=== PATIENT | male | born 1955 | race Caucasian/White ===

== ENCOUNTER 2017-05-27 17:38 | Emergency (ER) | payer OTHER ==
[2017-05-27 17:57] VITALS: BP 142/81; PULSE 88; TEMP 100.4; BMI 23.3
--- NOTE | 2017-05-27 18:33 | PDOC ---
History of Present Illness - General Chief Complaint: Respiratory Stated Complaint: CONGESTION Time Seen by Provider: 05/27/17 18:15 History Source: Patient Exam Limitations: No Limitations - History of Present Illness Initial Comments: 05/27/17 18:33 Here with with complaints of cough, fevers Tmax 101 today, white phlegm production and shortness of breath. Is a smoker, and feels is progressively worsening. Has had a chronic cough for the past 2 years however he became ill with chills and fevers yesterday. is ill with same but not as severe. Timing/Duration: reports: changing over time, getting worse Severity: reports: mild, moderate Associated Symptoms: reports: chest pain/soreness, cough, dizziness, fever/ chills, nasal congestion, nasal drainage, shortness of breath Past History - Travel Traveled outside of the country in the last 30 days: No Close contact w/someone who was outside of country & ill: No - Past Medical History Allergies/Adverse Reactions: Allergies Allergy/AdvReac Type Severity Reaction Status Date / Time No Known Allergies Allergy Verified 05/27/17 17:58 Home Medications: Ambulatory Orders Albuterol Sulfate [Proventil HFA Inhaler -] 1 - 2 inh PO QID #1 inhaler Levofloxacin [Levaquin -] 500 mg PO DAILY #10 tablet 05/27/17 GI Disorders: Yes (ULCER) Hypercholesterolemia: Yes - Surgical History GI Surgery: Yes (ULCERS) - Psycho/Social/Smoking Cessation Hx Anxiety: No Suicidal Ideation: No Smoking History: Current every day smoker Number of Cigarettes Smoked Daily: 20 Information on smoking cessation initiated: No Hx Alcohol Use: Yes (SOCIAL) Drug/Substance Use Hx: No Substance Use Type: None Respiratory Specific PMHX - Complaint Specific PMHX Bronchitis: No Pneumonia: No Review of Systems - Review of Systems Able to Perform ROS?: Yes Is the patient limited [place] Citizen proficient: Yes Constitutional: Yes: Symptoms Reported, See HPI, Chills, Fever, Malaise, Weakness HEENTM: Yes: Symptoms Reported, See HPI, Nose Congestion, Throat Swelling Respiratory: Yes: Symptoms reported, See HPI, Cough, Shortness of Breath. No: Wheezing Cardiac (ROS): No: Symptoms Reported ABD/GI: No: Symptoms Reported : No: Symptoms Reported Musculoskeletal: Yes: Symptoms Reported, Muscle Weakness Integumentary: Yes: See HPI. No: Symptoms Reported All Other Systems: Reviewed and Negative *Physical Exam - Vital Signs Last Vital Signs Temp Pulse Resp BP Pulse Ox 100.4 F H 88 20 142/81 96 05/27/17 17:55 05/27/17 17:55 05/27/17 17:55 05/27/17 17:55 05/27/17 17:55 - Physical Exam General Appearance: Yes: Nourished, Appropriately Dressed, Apparent Distress, Mild Distress HEENT: positive: NANDO, TMs Normal, Nasal Congestion, Rhinorrhea, Sinus Tenderness. negative: Normal ENT Inspection, Pharynx Normal (I'll do erythema noted with copious amount of posterior sinus drainage posterior pharynx) Neck: positive: Supple. negative: Lymphadenopathy (R), Lymphadenopathy (L) Respiratory/Chest: positive: Rhonchi, Wheezing (tight inspiratory breath sounds with provoked cough on deep inspiration. Right side more coarse breath sounds than left). negative: Chest Tender, Lungs Clear, Normal Breath Sounds, Respiratory Distress Cardiovascular: positive: Regular Rate Gastrointestinal/Abdominal: positive: Normal Bowel Sounds, Soft. negative: Tender Musculoskeletal: positive: Normal Inspection Extremity: positive: Normal Capillary Refill, Normal Inspection, Tender Integumentary: positive: Normal Color, Dry, Warm, Pale Neurologic: positive: dock grader II-XII NML intact, Fully Oriented, Alert, Normal Mood/ Affect, Normal Response, Motor Strength 5/5 Progress Note - Progress Note Progress Note: Acute bronchitis, x-ray negative for pneumonia. We will start Levaquin as patient is [id number] history smoker with fevers to cover, provided albuterol inhaler and will see Dr Real for followup in 2 days. *DC/Admit/Observation/Transfer Diagnosis at time of Disposition: Bronchitis - Discharge Dispostion Disposition: HOME Condition at time of disposition: Stable Admit: No - Patient Instructions Printed Discharge Instructions: DI for Acute Bronchitis Additional Instructions: Rest, drink lots of fluids: Teas, water, soups, Pedialyte Saltwater gargles Steamy showers/seem to face break up mucus Avoid contact with others until fevers and cough resolved Lots of handwashing and good hygiene Continue [id number] medications for symptomatic relief Tylenol or Motrin for fever and pain Levaquin 1 tab daily as directed until completed Proventil inhaler 2 puffs 4 times a day for the next 2 days then as needed Followup with private physician in one to 2 days Return to emergency department for worsened symptoms, fevers, dehydration - Post Discharge Activity Work/School Note: Back to Work
[2017-05-27] MEDS ORDERED: ALBUTEROL SO4 2.5/IPRATROPIUM 0.5 INH SOL 3 ML VIAL.NEB. NEB ONE ×2 (18:34→18:37)
[2017-05-27] MEDS ORDERED: IBUPROFEN 600 MG TABLET (FP) PO ONE (18:58)
[2017-05-27] MEDS ORDERED: LEVOFLOXACIN 500 MG TABLET (FP) PO ONE (18:59)
[2017-05-27] MEDS ORDERED: LEVOFLOXACIN 500 MG TABLET (FP) ONE (18:59)
== END 2017-05-27 19:07 | disposition home or self-care (01) ==
LOC: JERFT 17:38
PROC: 3E0F7GC Introduction of Other Therapeutic Substance into Respiratory Tract, Via Natural or Artificial Opening (ICD-10-PCS; principal; 2017-05-27)
DX: J40 Bronchitis, not specified as acute or chronic (principal); F17.210 Nicotine dependence, cigarettes, uncomplicated; E78.00 Pure hypercholesterolemia, unspecified
CPT/HCPCS: 71020-TC; 99281-25

== ENCOUNTER 2020-09-13 09:50 | Emergency (ER) | payer OTHER ==
[2020-09-13 10:19] VITALS: BMI 24.0
[2020-09-13] MEDS ORDERED: SODIUM CHLORIDE 0.9% 500 ML INFUS.BAG IV ONE (10:56)
[2020-09-13] MEDS ORDERED: ONDANSETRON 4 MG/2 ML VIAL IVPUSH ONE (10:56)
[2020-09-13] MEDS ORDERED: FAMOTIDINE 20 MG/50 ML IVPB 20 MG/50 ML MG IVPB ONE ×2 (10:56→11:12)
[2020-09-13] MEDS ORDERED: ASPIRIN 81 MG CHEWABLE TABLETS PO ONE (10:58)
[2020-09-13] MEDS ORDERED: HEPARIN NA (PORCINE) 5,000 UNITS/ML 1ML VIAL IVPUSH ONE (10:58)
[2020-09-13] MEDS ORDERED: ONDANSETRON 4 MG/2 ML VIAL ONE (11:03)
[2020-09-13] MEDS ORDERED: HEPARIN NA (PORCINE) 5,000 UNITS/ML 1ML VIAL ONE (11:03)
[2020-09-13] MEDS ORDERED: ASPIRIN 81 MG CHEWABLE TABLETS ONE (11:03)
[2020-09-13 11:11] LABS: BASO % 0.7 % (0-2.0); EOS % 0.1 % (0-4.5); HEMATOCRIT 42.5 % (35.4-49); HEMOGLOBIN 13.8 GM/dL (11.7-16.9); LYMPH % 12.6 % (8-40); MCH 25.6 pg (25.7-33.7); MCHC 32.5 g/dl (32.0-35.9); MEAN CELL VOLUME 78.9 fl (80-96); MEAN PLT VOLUME 9.9 fl (7.5-11.1); MONO % 5.9 % (3.8-10.2); NEUT % 80.7 % (42.8-82.8); PLATELET COUNT 254 K/MM3 (134-434); WHITE BLOOD COUNT 12.3 K/mm3 (4.0-10.0)
[2020-09-13] MEDS ORDERED: TICAGRELOR 90 MG TABLET PO ONE (11:12)
[2020-09-13 11:26] LABS: POTASSIUM 4.5 mmol/L (3.5-5.1)
[2020-09-13 11:29] LABS: BLOOD UREA NITROGEN 18.7 mg/dL (7-18); CALCIUM 9.8 mg/dL (8.5-10.1)
[2020-09-13 11:32] VITALS: BP 106/72; PULSE 74; TEMP 98.6
[2020-09-13 11:34] LABS: TOT PROT 8.2 g/dl (6.4-8.2)
[2020-09-14] MEDS ORDERED: TICAGRELOR 90 MG TABLET PO ONE (11:09)
== END 2020-09-13 11:40 | disposition short-term general hospital (02) ==
LOC: JER 09:50
DX: I21.3 ST elevation (STEMI) myocardial infarction of unspecified site (principal)
CPT/HCPCS: 36415; 71045-TC-FY; 80053; 83690; 84484; 85025; 85730; 93005; 93010; 99291; J1644

== ENCOUNTER 2021-04-28 20:57 | Emergency (ER) | payer OTHER ==
[2021-04-28 21:09] VITALS: TEMP 98.1; BMI 24.0
[2021-04-28] MEDS ORDERED: SODIUM CHLORIDE 0.9% 500 ML INFUS.BAG IV ONE (21:17)
[2021-04-28 21:59] LABS: BASO % 0.4 % (0-2.0); EOS % 0.1 % (0-4.5); HEMATOCRIT 29.5 % (35.4-49); HEMOGLOBIN 9.4 GM/dL (11.7-16.9); LYMPH % 7.1 % (8-40); MCHC 31.9 g/dl (32.0-35.9); MEAN PLT VOLUME 9.3 fl (7.5-11.1); MONO % 3.1 % (3.8-10.2); NEUT % 89.3 % (42.8-82.8); PLATELET COUNT 294 10^3/uL (134-434); RBC 4.27 M/mm3 (4.00-5.60); RDW 17.3 % (11.9-15.9); WHITE BLOOD COUNT 14.2 K/mm3 (4.0-10.0)
[2021-04-28 22:07] LABS: INR 1.05 (0.83-1.09); PROTHROMBIN TIME (PATIENT) 12.9 SEC (9.7-13.0)
[2021-04-28 22:18] LABS: CHLORIDE 112 mmol/L (98-107); SODIUM 143 mmol/L (136-145)
[2021-04-28 22:20] LABS: ALBUMIN 3.4 g/dl (3.4-5.0); ANION GAP 6 MMOL/L (8-16); BLOOD UREA NITROGEN 21.9 mg/dL (7-18); CALCIUM 8.3 mg/dL (8.5-10.1); CO2 24 mmol/L (21-32); GLUCOSE,RANDOM 95 mg/dL (74-106)
[2021-04-28 22:23] LABS: CREATININE 1.1 mg/dL (0.55-1.3); SGOT/AST 19 U/L (15-37); SGPT/ALT 30 U/L (13-61)
[2021-04-28 22:25] LABS: BILIRUBIN,TOTAL 0.4 mg/dL (0.2-1); TOT PROT 6.7 g/dl (6.4-8.2)
[2021-04-28 22:26] LABS: ALK PHOS 76 U/L (45-117)
[2021-04-28 22:59] LABS: ANISOCYTOSIS 2+; MACROCYTOSIS 0; OVALOCYTE 1+; PLATELET ESTIMATE NORMAL; TARGET CELLS 1+
[2021-04-28 23:43] LABS: URINE APPEARANCE CLEAR; URINE BILIRUBIN NEGATIVE (NEGATIVE); URINE COLOR YELLOW; URINE GLUCOSE (UA) NEGATIVE (NEGATIVE); URINE KETONE TRACE (NEGATIVE); URINE LEUK ESTERASE NEGATIVE (NEGATIVE); URINE NITRITE NEGATIVE (NEGATIVE); URINE PROTEIN NEGATIVE (NEGATIVE)
[2021-04-29 00:53] VITALS: BP 103/63; PULSE 74
== END 2021-04-29 00:54 | disposition home or self-care (01) ==
LOC: JER 20:57
DX: R42 Dizziness and giddiness (principal); R06.02 Shortness of breath; I95.9 Hypotension, unspecified
CPT/HCPCS: 36415; 71045-TC-FY; 80053; 81003; 82550; 84484; 85025; 85610; 87086; 93005; 93010; 99284-25; C9803; U0003; U0005

== ENCOUNTER 2024-12-31 14:50 | Observation (INO) | payer OTHER ==
[2024-12-31 16:21] LABS: ABSOLUTE IMMATURE GRANULOCYTES 0.02 x10^3/uL (0.0-0.031); BASOPHILS # 0.11 x10^3/uL (0.01-0.08); EOSINOPHILS # 0.22 x10^3/uL (0.04-0.54); HEMATOCRIT 26.5 % (40.1-51.0); HEMOGLOBIN 7.5 g/dL (13.7-17.5); MCHC 28.3 g/dl (32.3-36.5); MEAN CELL VOLUME 60.6 fl (79.0-92.2); MEAN PLT VOLUME 10.1 fl (9.4-12.4); MONOCYTE # 0.61 x10^3/uL (0.30-0.82); MONOCYTE % 8.4 % (5.3-12.2); PLATELET COUNT 496 x10^3/uL (163-337); RDW 22.7 % (12.2-16.4)
[2024-12-31 16:29] LABS: INR 1.15 (0.83-1.09); PROTHROMBIN TIME (PATIENT) 12.6 SEC (9.7-13.0)
[2024-12-31 16:32] LABS: ACTIVATED PTT 28.5 SECONDS (25.2-36.5)
[2024-12-31 16:45] LABS: ALBUMIN 3.2 g/dl (3.4-5.0); CALCIUM 8.6 mg/dL (8.5-10.1)
[2024-12-31 16:46] LABS: BLOOD UREA NITROGEN 18.9 mg/dL (7-18); MAGNESIUM 2.1 mg/dL (1.8-2.4)
[2024-12-31 16:49] LABS: CREATININE 1.1 mg/dL (0.55-1.3)
[2024-12-31 16:50] LABS: BILIRUBIN,TOTAL 0.9 mg/dL (0.2-1); TOT PROT 6.6 g/dl (6.4-8.2)
[2024-12-31 16:54] LABS: N-TERMINAL BNP 855.2 pg/ml (5-125)
[2024-12-31 17:13] LABS: LACTIC ACID 2.6 mmol/L (0.4-2.0)
[2024-12-31] MEDS: LACTATED RINGERS SOLUTION 1000 ML INFUS.BAG IV ONE (17:32)
[2024-12-31 17:37] LABS: HCV DIAGNOSTIC IN-HOUSE W/RFLX NON-REACTIVE (NONREACTIVE); HIV INTERPRETATION NEGATIVE (NEGATIVE)
[2024-12-31 18:35] LABS: PH,URINE 5.5 (5.0-8.0); URINE APPEARANCE CLEAR; URINE BILIRUBIN NEGATIVE (NEGATIVE); URINE COLOR YELLOW; URINE GLUCOSE (UA) 3+ (NEGATIVE); URINE KETONE NEGATIVE (NEGATIVE); URINE LEUK ESTERASE NEGATIVE (NEGATIVE); URINE NITRITE NEGATIVE (NEGATIVE); URINE PROTEIN NEGATIVE (NEGATIVE)
[2024-12-31 23:16] VITALS: BMI 21.9
[2025-01-01 01:44] LABS: ABSOLUTE IMMATURE GRANULOCYTES 0.02 x10^3/uL (0.0-0.031); BASOPHILS # 0.12 x10^3/uL (0.01-0.08); EOSINOPHIL % 2.7 % (0.8-7.0); EOSINOPHILS # 0.24 x10^3/uL (0.04-0.54); HEMATOCRIT 29.2 % (40.1-51.0); HEMOGLOBIN 8.4 g/dL (13.7-17.5); MCHC 28.8 g/dl (32.3-36.5); MEAN CELL VOLUME 63.3 fl (79.0-92.2); MEAN PLT VOLUME 10.4 fl (9.4-12.4); MONOCYTE # 0.61 x10^3/uL (0.30-0.82); PLATELET COUNT 430 x10^3/uL (163-337); RDW 25.8 % (12.2-16.4)
[2025-01-01 08:39] LABS: ABSOLUTE IMMATURE GRANULOCYTES 0.02 x10^3/uL (0.0-0.031); BASOPHILS # 0.13 x10^3/uL (0.01-0.08); EOSINOPHIL % 2.4 % (0.8-7.0); EOSINOPHILS # 0.19 x10^3/uL (0.04-0.54); HEMATOCRIT 27.8 % (40.1-51.0); HEMOGLOBIN 8.2 g/dL (13.7-17.5); MCHC 29.5 g/dl (32.3-36.5); MEAN CELL VOLUME 62.2 fl (79.0-92.2); MEAN PLT VOLUME 10.2 fl (9.4-12.4); MONOCYTE # 0.52 x10^3/uL (0.30-0.82); MONOCYTE % 6.6 % (5.3-12.2); PLATELET COUNT 406 x10^3/uL (163-337); RDW 25.2 % (12.2-16.4)
[2025-01-01 08:49] LABS: POTASSIUM 4.4 mmol/L (3.5-5.1)
[2025-01-01 08:58] LABS: CALCIUM 8.6 mg/dL (8.5-10.1)
[2025-01-01 08:59] LABS: BLOOD UREA NITROGEN 14.6 mg/dL (7-18)
[2025-01-01 09:02] LABS: CREATININE 0.9 mg/dL (0.55-1.3)
[2025-01-01] MEDS: MULTIVITAMINS (DAILY MVI) TABLET (FP) PO SCH (09:46)
[2025-01-01] MEDS: EZETIMIBE 10 MG TABLET (FP) PO SCH (09:46)
[2025-01-01] MEDS: CLOPIDOGREL BISULFATE 75 MG TABLET (FP) PO SCH (09:47)
[2025-01-01] MEDS: SODIUM CHLORIDE 250 ML IV STA (10:32)
[2025-01-01] MEDS: PANTOPRAZOLE 40 MG TABLET PO SCH ×2 (10:32→22:09)
[2025-01-01] MEDS: SODIUM CHLORIDE 1,000 ML IV SCH (10:53)
[2025-01-01] MEDS: IRON SUCROSE INJECTION 200 MG in SODIUM CHLORIDE 100 ML IVPB ONE (14:01)
[2025-01-01] MEDS: ATORVASTATIN CA 80 MG TABLET (FP) PO SCH (22:09)
[2025-01-02 06:39] LABS: HEMATOCRIT 27.4 % (40.1-51.0); HEMOGLOBIN 8.2 g/dL (13.7-17.5); MCHC 29.9 g/dl (32.3-36.5); MEAN CELL VOLUME 62.7 fl (79.0-92.2); PLATELET COUNT 367 x10^3/uL (163-337); RDW 25.1 % (12.2-16.4)
[2025-01-02 07:00] LABS: POTASSIUM 4.3 mmol/L (3.5-5.1)
[2025-01-02 07:03] LABS: BLOOD UREA NITROGEN 12.4 mg/dL (7-18); CALCIUM 8.4 mg/dL (8.5-10.1)
[2025-01-02 07:08] LABS: BILIRUBIN,TOTAL 0.9 mg/dL (0.2-1); CREATININE 0.9 mg/dL (0.55-1.3); TOT PROT 5.9 g/dl (6.4-8.2)
[2025-01-02] MEDS: IRON SUCROSE INJECTION 200 MG in SODIUM CHLORIDE 100 ML IVPB ONE (13:30)
[2025-01-03 16:40] VITALS: BP 109/60; PULSE 68; RESP 18; TEMP 98
== END 2025-01-03 17:15 | disposition short-term general hospital (02) ==
LOC: JER 14:50 → JERBED 20:32 → J4S 22:06
PROVIDERS: ADMIT Hospitalist; ATTEND Family Medicine
PROC: 30233N1 Transfusion of Nonautologous Red Blood Cells into Peripheral Vein, Percutaneous Approach (ICD-10-PCS; principal; 2024-12-31)
PROC: 3E033GC Introduction of Other Therapeutic Substance into Peripheral Vein, Percutaneous Approach (ICD-10-PCS; 2024-12-31)
PROC: 3E0337Z Introduction of Electrolytic and Water Balance Substance into Peripheral Vein, Percutaneous Approach (ICD-10-PCS; 2024-12-31)
DX: D50.9 Iron deficiency anemia, unspecified (principal); I47.20 Ventricular tachycardia, unspecified; E11.9 Type 2 diabetes mellitus without complications; I11.9 Hypertensive heart disease without heart failure; Z95.1 Presence of aortocoronary bypass graft; Z95.5 Presence of coronary angioplasty implant and graft; I25.2 Old myocardial infarction; K92.9 Disease of digestive system, unspecified
CPT/HCPCS: 0241U-QW; 36415; 36430; 70450-TC; 71045-TC-FY; 80048; 80053; 80061; 81003; 82272; 82728; 82962; 83036; 83540; 83550; 83605; 83735; 83880; 84443; 84484; 85025; 85027; 85610; 85730; 86803; 86850; 86900; 86901; 86922; 87086; 87389; 93005; 93010; 93306-TC; 96361; 96365; 96366; 99285-25; G0378; J1756; P9058